=== PATIENT | female | born 2000 | race African-American/Black ===

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

== ENCOUNTER 2023-03-25 17:25 | Emergency (ER) | payer OTHER ==
[~2023-03-25] VITALS: Ht 170.2 cm; Wt 86.2 kg
[2023-03-25 17:31] VITALS: BP 160/91; RESP 16; TEMP 98.2; O2SAT 100
[2023-03-25 17:35] VITALS: PULSE 112
[2023-03-25] MEDS ORDERED: NAPR-1129 MT (18:44)
== END 2023-03-25 21:01 | disposition home or self-care (01) ==
LOC: ER 17:25
DX: M25.531 Pain in right wrist (principal)
CPT/HCPCS: 73100; 99283

== ENCOUNTER 2023-07-27 12:07 | Emergency (ER) | payer OTHER ==
[~2023-07-27] VITALS: Ht 170.2 cm; Wt 100.0 kg
[~2023-07-27 12:07] MED LIST changes: +NAPR-1129 MT; -PNV1TABL50 MT
[2023-07-27 12:10] VITALS: O2SAT 98
[2023-07-27 14:27] LABS: CLARITY URINE CLOUDY (CLEAR); COLOR URINE YELLOW (YELLOW); GLUCOSE URINE NEGATIVE (NEGATIVE); KETONES URINE 1+ (NEGATIVE); LEUKOCYTE ESTERASE URINE NEGATIVE (NEGATIVE); NITRITE URINE NEGATIVE (NEGATIVE); OCCULT BLOOD URINE NEGATIVE (NEGATIVE); PH URINE 6.5 (4.5-8.0); PROTEIN URINE NEGATIVE (NEGATIVE)
[2023-07-27 14:48] LABS: MUCUS URINE 1+ /lpf (< = 2+); SQUAMOUS EPITHELIAL CELL URINE 3+ /lpf (RARE/1+)
[2023-07-27 14:49] VITALS: BP 134/77; PULSE 100; RESP 18; TEMP 98.2
[2023-07-27 14:49] LABS: RBC URINE NONE SEEN /hpf (0-2); WBC URINE 0-2 /hpf (0-2)
[2023-07-27] MEDS ORDERED: PREN1TAB78 MT (14:49)
[2023-07-27 14:50] LABS: BACTERIA URINE 1+
== END 2023-07-27 14:51 | disposition home or self-care (01) ==
LOC: ER 12:07
DX: O20.0 Threatened abortion (principal); Z3A.01 Less than 8 weeks gestation of pregnancy
CPT/HCPCS: 36415; 76801; 81003; 81025; 84702; 99284